=== PATIENT | male | born 1985 | race Caucasian/White ===

== ENCOUNTER 2024-07-20 07:42 | Emergency (ER) | payer MEDICAID ==
[~2024-07-20] VITALS: Ht 172.7 cm; Wt 88.0 kg
[2024-07-20] MEDS ORDERED: IBUP-1455 PO (11:30)
[2024-07-20] MEDS ORDERED: DIPH25CA66 PO (11:30)
[2024-07-20] MEDS: IBUPROFEN 800 MG TAB PO ONE (12:49)
[2024-07-20 12:51] VITALS: BP 138/91; TEMP 97.5
[2024-07-20 12:52] VITALS: PULSE 88; RESP 16; O2SAT 98
== END 2024-07-20 12:55 | disposition home or self-care (01) ==
LOC: ER 07:42
DX: K40.90 Unilateral inguinal hernia, without obstruction or gangrene, not specified as recurrent (principal); Z79.899 Other long term (current) drug therapy
CPT/HCPCS: 76881

== ENCOUNTER 2024-09-12 10:21 | Emergency (ER) | payer MEDICAID ==
[~2024-09-12] VITALS: Ht 172.7 cm; Wt 89.5 kg
[~2024-09-12 10:21] MED LIST: DIPH25CA66 PO; IBUP-1455 PO
[2024-09-12 11:43] VITALS: BP 121/76; PULSE 82; RESP 18; TEMP 98.2; O2SAT 98
[2024-09-12] MEDS ORDERED: ACET-1882 PO (11:59)
[2024-09-12] MEDS ORDERED: METH4PAK PO (11:59)
[2024-09-12] MEDS ORDERED: EPIN0.3I24 IJ (11:59)
[2024-09-12] MEDS ORDERED: HYDR-3682 PO (11:59)
== END 2024-09-12 12:09 | disposition home or self-care (01) ==
LOC: ER 10:21
DX: T78.49XA Other allergy, initial encounter (principal); Z79.899 Other long term (current) drug therapy; X58.XXXA Exposure to other specified factors, initial encounter